=== PATIENT | male | born 1985 | race Caucasian/White ===

== ENCOUNTER 2016-09-08 10:02 | Day surgery (SDC) | payer OTHER ==
[2016-09-07 10:15] VITALS: BMI 23.7
[2016-09-08] MEDS ORDERED: MIDAZOLAM HCL 2 MG/2 ML SINGLE DOSE VIAL ONE (10:43)
[2016-09-08] MEDS ORDERED: BUPIVACAINE HCL/PF 2.5 MG/ML - 30 ML VIAL IJ ONE (11:10)
[2016-09-08] MEDS ORDERED: ceFAZolin SODIUM 1 GM VIAL ONE (11:35)
[2016-09-08] MEDS ORDERED: KETOROLAC TROMETHAMINE 30 MG/1 ML VIAL ONE (11:39)
[2016-09-08 12:07] VITALS: TEMP 98.2
[2016-09-08 12:46] VITALS: BP 120/64; PULSE 62
--- NOTE | 2016-09-08 18:54 | OP ---
DATE OF OPERATION: 09/08/2016 PREOPERATIVE DIAGNOSIS: Right index finger displaced distal interphalangeal joint intraarticular fracture, mallet finger. POSTOPERATIVE DIAGNOSIS: Right index finger displaced distal interphalangeal joint intraarticular fracture, mallet finger. PROCEDURE: 1. Operative treatment of right index finger distal interphalangeal joint articular fracture with internal fixation. 2. Treatment of right index finger mallet finger. SURGEON: Baldo Ren MD PRODUCTION DRILLING MACHINE OPERATOR: CYNDI Doyle ANESTHESIA: Local. COMPLICATIONS: None. ESTIMATED BLOOD LOSS: Minimal. INDICATIONS FOR PROCEDURE: The patient is a 31-year-old male with the above finding indicated for operative treatment. The risks, benefits, and alternatives were discussed with the patient at length. Proper informed consent was obtained. DESCRIPTION OF PROCEDURE: After proper identification of the patient and correct operative site, the patient was brought to the operating room and placed on the operating table and prominences well padded. Local anesthesia was given with 2% lidocaine. The right upper extremity was prepped and draped in the usual sterile fashion. Under live fluoroscopy, the fracture fragments were able to be reduced with percutaneous clamp positioning. Four size 0.6 mm K-wire were then placed across the fracture site percutaneously. This obtained secure stable fixation of the fracture. The finger was then splinted in extension to treat the mallet injury and sterile dressings were applied after the pins were cut short and bent. The patient was brought to the recovery room in stable condition. He tolerated the procedure well. Tj Welch, the kindergarten instructional assistant, was integral throughout the procedure. This procedure could not have been performed without a skilled operative kindergarten instructional assistant. BALDO REN M.D. [id number]
== END 2016-09-08 12:30 | disposition home or self-care (01) ==
LOC: FASU 10:02
PROVIDERS: ATTEND Orthopaedic Surgery Hand Surgery
PROC: 0RSWXZZ Reposition Right Finger Phalangeal Joint, External Approach (ICD-10-PCS; 2016-09-08)
PROC: 0PST34Z Reposition Right Finger Phalanx with Internal Fixation Device, Percutaneous Approach (ICD-10-PCS; principal; 2016-09-08 11:29)
DX: S62.630A Displaced fracture of distal phalanx of right index finger, initial encounter for closed fracture (principal); M20.011 Mallet finger of right finger(s); X58.XXXA Exposure to other specified factors, initial encounter; Y93.9 Activity, unspecified; Y92.9 Unspecified place or not applicable
CPT/HCPCS: 73140-TC-RT